=== PATIENT | female | born 1955 | race Caucasian/White ===

== ENCOUNTER 2021-02-18 16:33 | Inpatient (IN) | payer OTHER ==
[~2021-02-18] VITALS: Ht 165.1 cm; Wt 128.4 kg
--- NOTE | ~2021-02-18 | CON ---
[address] [address] CONSULTATION Name: GOLDIE CORREIA Room: [address] ADM IN M.R.#: [id number] Admission: 02/18/21 Attend Phys: Olivia Rodgers Discharge: Date of : 59 Report #: [id number] THIS REPORT FOR: cc: Zane Kennedy MD, Thomas W. MD Namin, Farid M. MD ~ cc: Zane Kennedy DATE OF CONSULTATION: 02/20/2021 Please note at the time of this dictation, the patient was seen and physically examined by myself. HISTORY OF PRESENT ILLNESS: This is a 65-year-old female who presented to the Emergency Room where she became very weak and lightheaded after she went to use the restroom and she said that she proceeded to fall down to the floor for this reason, she did not lose consciousness, but when the manager mac got there, she was having a lot of crampy abdominal pain in the lower abdominal area as well as in the upper and she had a very low blood pressure. The patient states that her bowels normally move daily to every other day and most likely are hard and dry for the most part. She thinks she takes Colace, but is not for sure if she does that. The patient did have a colonoscopy done three months ago at [facility] [place]. We will obtain those records. She states she had polyps, but otherwise was normal. She states after that her episode in the bathroom since she has been here, she has had significant diarrhea with no bright red blood or any melena noted in her stool. She has had some dry heaves with nausea and she states her stools were very foul smelling. Her CT showed abnormality of thickening and stranding in the sigmoid colon and descending colon. The patient states she does not have any issues with her upper GI tract and has had gastric bypass in the past. ALLERGIES: PENICILLIN. MEDICATIONS FROM HOME: Include Norvasc, vitamin B12, multivitamin, ferrous sulfate, AccuNeb, magnesium, Jardiance, Ozempic, Ventolin, lisinopril, Zyrtec, miconazole nitrate, hydralazine, Lipitor, potassium, , metformin, sertraline, Coreg, Flonase, Advair, Neurontin, and lamotrigine. PAST MEDICAL HISTORY: Asthma, obstructive sleep apnea uses CPAP, congestive heart failure, hysterectomy, hypertension, diabetes, hyperlipidemia, some depression. The patient is legally blind. PAST SURGICAL HISTORY: She has had gastric bypass and cholecystectomy. FAMILY HISTORY: Negative for [place] [address] CONSULTATION Name: GOLDIE CORREIA Room: [address] IN M.R.#: [id number] Admission: 02/18/21 Attend Phys: Olivia Rodgers Discharge: Date of : 59 Report #: [id number] SOCIAL HISTORY: She denies any alcohol, tobacco or illegal drug use. REVIEW OF SYSTEMS: Twelve-point review of systems is essentially negative except what is mentioned in the HPI. PHYSICAL EXAMINATION: VITAL SIGNS: Temperature 37.2, pulse 77, respirations 20, blood pressure 101/71. HEART: Regular rate and rhythm. LUNGS: Diminished, but clear. ABDOMEN: Soft, positive bowel sounds in all four quadrants with tenderness, more so on the left and lower, but generalized throughout. LABORATORY DATA: Hemoglobin is 11.6, white count on admission was 18.6, she is down to 16; hemoglobin is 11.6; platelets 191. BUN is 42, creatinine 3.2. Her GFR is 15. Her stool studies for C. diff, Giardia have all been negative. CT scan shows some circumferential wall thickening involving the sigmoid colon with extensive pericolonic fat stranding, likely representing severe colitis with wall thickening of the descending colon and sigmoid colon to the level of the rectum, questionable diverticulitis. IMPRESSION: 1. Abdominal pain. 2. Nausea. 3. Abnormal CT. Bowel wall thickening on the left side with stranding, questionable diverticulitis. 4. Constipation prior to admission. 5. Diarrhea present. 6. Leukocytosis. 7. Obstructive sleep apnea. 8. Chronic kidney disease stage III. 9. Diabetes. 10. Congestive heart failure. PLAN: 1. Obtain medical records from [facility] regarding her colonoscopy three months ago. 2. Continue antibiotics. 3. Clear liquids. 4. Better bowel regimen when she goes home possibly senna b.i.d. since she does not take anything on a regular basis except Colace once in a while, per patient. 5. Further recommendations to be made after Dr. Tinajero sees the patient later [address] [address] CONSULTATION Name: GOLDIE CORREIA Room: [address] IN M.R.#: [id number] Admission: 02/18/21 Attend Phys: Olivia Rodgers Discharge: Date of : 59 Report #: [id number] today. Thank you for allowing us to participate in this patient's care. Please do not hesitate to call with any questions in regard to this consult. By: [id number] Tinajero MD /odalys
[2021-02-18 16:35] VITALS: BP 91/45
[2021-02-18] MEDS ORDERED: NORVASC5 MG PO (16:38)
[2021-02-18 18:41] LABS: HEMATOCRIT 45.2 % (37.0-47.0); HEMOGLOBIN 14.6 gm/dL (12.0-15.0); MCH 30.6 pg (26.0-34.0); MCHC 32.4 g/dL (28.0-37.0); MCV 94.4 fL (80.0-100.0); MPV 8.6 fl. (7.2-11.1); NUCLEATED RBCS 0 /100WBC; PLATELET COUNT* 293 thou/uL (150-400); RBC 4.79 mil/uL (4.20-5.00); RDW-CV 14.5 % (10.5-14.5); WBC 18.6 thou/uL (4.0-11.0)
[2021-02-18 19:14] LABS: ABSOLUTE EOSINOPHILS 0.4 thou/uL (0.0-0.7); ABSOLUTE LYMPHOCYTES 0.9 thou/uL (0.8-5.3); ABSOLUTE MONOCYTES 0.7 thou/uL (0.0-1.2); ABSOLUTE NEUTROPHILS 16.6 thou/uL (1.6-8.1)
[2021-02-18 19:15] LABS: PLATELET ESTIMATE ADEQUATE
[2021-02-18 19:37] LABS: CALCIUM 7.7 mg/dL (8.5-10.1); CREATININE 1.6 mg/dL (0.6-1.3); POTASSIUM 4.3 mmol/L (3.5-5.1)
[2021-02-18 19:42] LABS: ALBUMIN 2.7 g/dL (3.4-5.0); TOTAL BILIRUBIN 0.5 mg/dL (<0.1-1.0); TOTAL PROTEIN 6.1 g/dL (6.4-8.2)
[2021-02-18 21:57] VITALS: BP 108/47
[2021-02-18 22:00] VITALS: BP 133/69
[2021-02-18 23:44] VITALS: BP 114/55
[2021-02-19 03:49] VITALS: BP 105/51
[2021-02-19 05:36] LABS: HEMATOCRIT 41.3 % (37.0-47.0); HEMOGLOBIN 13.7 gm/dL (12.0-15.0); MCH 31.2 pg (26.0-34.0); MCHC 33.2 g/dL (28.0-37.0); MCV 93.9 fL (80.0-100.0); RBC 4.4 mil/uL (4.20-5.00); RDW-CV 14.1 % (10.5-14.5); WBC 19.2 thou/uL (4.0-11.0)
[2021-02-19 06:25] LABS: CALCIUM 8.2 mg/dL (8.5-10.1); CREATININE 2.2 mg/dL (0.6-1.3)
[2021-02-19 08:00] VITALS: BP 106/56
--- NOTE | 2021-02-19 09:53 | EKG ---
[place] [address] ELECTROCARDIOGRAM REPORT Name: GOLDIE OCRREIA Room: [address] ADM IN M.R.#: [id number] Admission: 02/18/21 Attend Phys: Mateo Jorge Discharge: Date of : 59 Date of Service: 02/18/21 1845 Report #: [id number] THIS REPORT FOR: //name// [facility] ED Test Date: 2021-02-18 Test Time: 18:45:06 Pat Name: GOLDIE CORREIA Department: Room: [facility] Gender: F [employer] Executive: MARGARET : 1955 Requested By: Zana Walton Order Number: [id number] MD: Edwardo Garcia Measurements Intervals [place] Rate: 79 P: 11 VA: 154 QRS: -48 QRSD: 125 T: 58 QT: 427 QTc: 490 Interpretive Statements Sinus rhythm Left bundle branch block Compared to ECG 11/26/2008 14:21:01 Left bundle-branch block now present Electronically Signed On 02-19-2021 9:53:33 CDT by Edwardo Garcia [email or web address] <ELECTRONICALLY SIGNED> By: Edwardo Garcia MD, FACC 02/19/21 0953 1845 1845 Edwardo Garcia MD, FACC /EPI
[2021-02-19 09:54] LABS: CREATININE 2.6 mg/dL (0.6-1.3); POTASSIUM 4.1 mmol/L (3.5-5.1)
[2021-02-19] MEDS ORDERED: VITAMIN B-121000 MC2 PO (09:56)
[2021-02-19 09:57] LABS: MAGNESIUM 2.4 mg/dL (1.8-2.4); PHOSPHORUS* 5.8 mg/dL (2.5-4.9)
[2021-02-19] MEDS ORDERED: CALCIUM CARBON500 MG PO (09:57)
[2021-02-19] MEDS ORDERED: CENTRUM ADULTS1 EACH PO (10:01)
[2021-02-19] MEDS ORDERED: DULCOLAX STOOL100 M1 PO (10:02)
[2021-02-19] MEDS ORDERED: FERROUS SULFAT325 M2 PO (10:02)
[2021-02-19] MEDS ORDERED: ALBUTEROL2.5 MG/31 INH (10:04)
[2021-02-19] MEDS ORDERED: MAGNESIUM250 M1 PO (10:05)
[2021-02-19] MEDS ORDERED: JARDIANCE10 MG PO (10:12)
[2021-02-19] MEDS ORDERED: OZEMPIC1 MG/0.71 SUBQ (10:14)
[2021-02-19] MEDS ORDERED: VENTOLIN HFA 1818 GM INH (10:16)
[2021-02-19] MEDS ORDERED: LISINOPRIL20 MG PO (10:16)
[2021-02-19] MEDS ORDERED: CHILDREN'S ZYRT10 M1 PO (10:17)
[2021-02-19] MEDS ORDERED: ZEASORB AF71 GM TP (10:20)
[2021-02-19] MEDS ORDERED: HYDRALAZINE 5050 MG PO (10:21)
[2021-02-19] MEDS ORDERED: KLOR-CON 1010 MEQ PO (10:22)
[2021-02-19] MEDS ORDERED: LIPITOR 20 MG T20 M1 PO (10:22)
[2021-02-19] MEDS ORDERED: TORSEMIDE20 MG PO (10:23)
[2021-02-19] MEDS ORDERED: SERTRALINE HCL100 MG PO (10:24)
[2021-02-19] MEDS ORDERED: METFORMIN HCL500 M3 PO (10:24)
[2021-02-19] MEDS ORDERED: COREG25 M1 PO (10:25)
[2021-02-19] MEDS ORDERED: ADVAIR 100-501 EACH INH (10:26)
[2021-02-19] MEDS ORDERED: FLONASE 0.05%50 MCG NASAL (10:26)
[2021-02-19] MEDS ORDERED: NEURONTIN300 MG PO (10:27)
[2021-02-19] MEDS ORDERED: LAMOTRIGINE250 MG PO (10:28)
[2021-02-19 12:36] VITALS: BP 100/43
[2021-02-19 16:45] VITALS: BP 108/39
[2021-02-19 20:00] VITALS: BP 138/42
[2021-02-20 00:44] VITALS: BP 106/83
[2021-02-20 04:35] LABS: ABSOLUTE EOSINOPHILS 0.1 thou/uL (0.0-0.7); ABSOLUTE MONOCYTES 0.8 thou/uL (0.0-1.2); BASOPHILS 0.1 %; EOSINOPHILS 0.6 %; HEMATOCRIT 37.1 % (37.0-47.0); LYMPHOCYTES 6.1 %; MCH 30.8 pg (26.0-34.0); MCHC 31.3 g/dL (28.0-37.0); MCV 98.5 fL (80.0-100.0); MONOCYTES 5.3 %; MPV 8.8 fl. (7.2-11.1); NUCLEATED RBCS 0 /100WBC; PLATELET COUNT* 191 thou/uL (150-400); POLYS 87.9 %; RBC 3.77 mil/uL (4.20-5.00); RDW-CV 15.1 % (10.5-14.5)
[2021-02-20 04:42] LABS: HEMOGLOBIN 11.6 gm/dL (12.0-15.0)
[2021-02-20 04:49] LABS: CALCIUM 7.9 mg/dL (8.5-10.1); CREATININE 3.2 mg/dL (0.6-1.3); POTASSIUM 3.9 mmol/L (3.5-5.1)
[2021-02-20 04:53] VITALS: BP 101/71
[2021-02-20 08:00] VITALS: BP 128/47
[2021-02-20 11:15] LABS: URINE BILIRUBIN NEGATIVE (Negative); URINE BLOOD TRACE (Negative); URINE CLARITY CLEAR; URINE COLOR YELLOW; URINE GLUCOSE-RANDOM 1+ (Negative); URINE KETONES TRACE (Negative); URINE LEUKOCYTES-REFLEX TRACE (Negative); URINE NITRITE-REFLEX NEGATIVE (Negative); URINE PROTEIN TRACE (Negative); URINE UROBILINOGEN 0.2 E.U./dl (0.2-1.0)
[2021-02-20 11:25] LABS: BACTERIA-REFLEX 1-9 Few /HPF (None Seen); CASTS None Seen /LPF (None Seen); MUCUS None Seen strn/LPF (None Seen); SQUAMOUS >10 Many /LPF (0-3); URINE RBC 0-2 Rare /HPF (0-2); URINE WBC-REFLEX 0-5 Rare /HPF (0-5)
[2021-02-20 11:26] LABS: CRYSTALS None Seen /LPF (None Seen)
[2021-02-20 11:47] VITALS: BP 105/52
[2021-02-20 15:38] VITALS: BP 130/64
[2021-02-20 20:00] VITALS: BP 103/56
[2021-02-21] VITALS: BP 120/56
[2021-02-21 04:50] VITALS: BP 128/60
[2021-02-21 04:52] LABS: CALCIUM 8.2 mg/dL (8.5-10.1); CREATININE 2.2 mg/dL (0.6-1.3); POTASSIUM 3.4 mmol/L (3.5-5.1)
[2021-02-21 08:00] VITALS: BP 161/68
[2021-02-21] MEDS ORDERED: FLAGYL500 M1 PO (10:38)
[2021-02-21] MEDS ORDERED: CIPRO500 M1 PO (10:38)
[2021-02-21 11:42] VITALS: BP 161/68
[2021-02-21 12:00] VITALS: BP 175/72
== END 2021-02-21 13:02 | disposition home or self-care (01) | DRG 871 ==
LOC: M.ERS 16:33 → M.TBA-ER 17:57 → M.2W 17:57
PROVIDERS: Family Medicine; Internal Medicine; ADMIT Internal Medicine; ATTEND Internal Medicine
PROC: 5A09457 Assistance with Respiratory Ventilation, 24-96 Consecutive Hours, Continuous Positive Airway Pressure (ICD-10-PCS; principal; 2021-02-18)
DX: A41.9 Sepsis, unspecified organism (principal); N17.0 Acute kidney failure with tubular necrosis; A04.9 Bacterial intestinal infection, unspecified; E44.0 Moderate protein-calorie malnutrition; I13.0 Hypertensive heart and chronic kidney disease with heart failure and stage 1 through stage 4 chronic kidney disease, or unspecified chronic kidney disease; Z68.42 Body mass index [BMI] 45.0-49.9, adult; K57.32 Diverticulitis of large intestine without perforation or abscess without bleeding; E86.0 Dehydration; Z20.822 Contact with and (suspected) exposure to COVID-19; J45.909 Unspecified asthma, uncomplicated; I50.9 Heart failure, unspecified; G47.33 Obstructive sleep apnea (adult) (pediatric); E78.5 Hyperlipidemia, unspecified; I95.89 Other hypotension; F32.9 Major depressive disorder, single episode, unspecified; K59.00 Constipation, unspecified; N18.30 Chronic kidney disease, stage 3 unspecified; E11.22 Type 2 diabetes mellitus with diabetic chronic kidney disease; Z90.710 Acquired absence of both cervix and uterus; Z88.0 Allergy status to penicillin; Z90.49 Acquired absence of other specified parts of digestive tract; Z98.84 Bariatric surgery status